=== PATIENT | female | born 1990 | race American Indian/Alaskan Native ===

== ENCOUNTER → 2016-05-14 | Day surgery (SDC) | payer OTHER ==
[~2016-05-14] VITALS: Ht 175.3 cm; Wt 95.3 kg
[~2016-05-14] MED LIST: DICLEGIS 10 MG-1 TCP PO; MIRENA1 EACH; MOTRIN 800MG T800 MG PO; PRENATAL1 TA2 PO; REGLAN10 MG PO; TYLENOL TAB 32325 MG PO; VITAFOL PO; ZOFRAN ODT4 MG PO
--- NOTE | 2016-05-24 17:25 | Operative Report ---
Operative/Inv Procedure Report Surgery Date: 05/14/16 Name of Procedure: Excision of vaginal lesion Pre-Operative Diagnosis: Vaginal lesion Post-Operative Diagnosis: Same Estimated Blood Loss: scant Surgeon/Traffic Operations Engineer: AUTUMN KIRKLAND MD Anesthesia: moderate sedation Operative/Procedure Note Note: The patient was brought to the operating room and placed on the OR table in the dorsal supine position. She was given adequate anesthesia and repositioned in modified dorsal lithotomy. She was prepped and draped in usual sterile fashion. Vaginal lesion was noted in the midline extending from the introitus. This was injected with 1% lidocaine with epinephrine. Was grasped with a Lluvia clamp and traction was placed on this lesion throughout the procedure. Using the electrocautery the needle tip Bovie was used for excision of this vaginal lesion.The defect was and coagulated and Silvadene dressing was applied. Sent to pathology. The patient was awakened and sent to recovery in good condition. All needle, sponge, and instrument counts were correct at the end of the procedure 2.
== END ==
LOC: STS 03:16
DX: N89.8 Other specified noninflammatory disorders of vagina (principal)
CPT/HCPCS: 81025; 88305; J2250

== ENCOUNTER 2016-07-26 17:40 | Emergency (ER) | payer OTHER ==
[~2016-07-26] VITALS: Ht 175.3 cm; Wt 93.9 kg
[~2016-07-26 17:40] MED LIST changes: -MIRENA1 EACH
--- NOTE | 2016-07-26 18:11 | ED HEAD/FACIAL INJ COMPLAINT ---
History of Present Illness General Chief Complaint: Facial or Head Injury Stated Complaint: HIT HEAD,-LOC,-LAC Source: patient Exam Limitations: no limitations Vital Signs & Intake/Output Vital Signs & Intake/Output Vital Signs Date Time Temp Pulse Resp B/P B/P Pulse O2 O2 Flow FiO2 Mean Ox Delivery Rate 07/26 1910 97.8 63 18 101/61 98 Room Air 07/26 1747 98.3 79 16 102/68 95 Room Air Allergies Coded Allergies: Influenza Virus Vaccines (SYNCOPE 07/26/16) Reconcile Medications Levonorgestrel (Mirena) 20 MCG/24 HOUR (5 YEARS) IUD CONTROL (Reported) Triage Note: TRIAGE: HIT HEAD ON [place] AT [place] [facility] 30 MINS AGO. ARRIVES WITH VERY SMALL LAC TO R TEMPORAL HAIRLINE, BLEEDING CONTOLLED. DENIES LOC. DENIES VISION CHANGES. SLIGHT NAUSEA DURING EPISODE, NOW RESOLVED. PERRLA, DEMONSTRATES GOOD FOCAL CONTROL. MED WITH TYLENOL IN TRIAGE. Triage Nurses Notes Reviewed? yes Onset: Abrupt Severity: mild Severity Numbers: 1 Location: frontal Method of Injury: direct blow : No Patient currently breastfeeds: No HPI: Patient is a 26-year-old female who presents emergency that today while at [facility] she was in a bent over position stood up and struck the corner of a piece of wood to the right frontal region of her scalp resulting bleeding that was controlled prior to arrival. No loss of consciousness had occurred. Patient did immediately have dizziness and nausea however no medications given prior to arrival. Patient denies any blurred vision neck pain (CECILIO OLVERA) Past History Travel History Traveled to [place] past 21 day No Medical History Any Pertinent Medical History? none Neurological: NONE EENT: NONE Cardiovascular: NONE Respiratory: NONE Gastrointestinal: NONE Hepatic: NONE Renal: NONE Musculoskeletal: NONE Psychiatric: NONE Endocrine: NONE Blood Disorders: NONE Cancer(s): NONE DAMPER MAKER/Reproductive: NONE Surgical History Surgical History: non-contributory Psychosocial History What is your primary language Azeri Tobacco Use: Quit >30 days ago ETOH Use: occasional use Illicit Drug Use: denies illicit drug use Family History Hx Contributory? No (CECILIO OLVERA) Review of Systems Review of Systems Constitutional: Reports: no symptoms. EENTM: Reports: no symptoms. Respiratory: Reports: no symptoms. Cardiovascular: Reports: no symptoms. GI: Reports: no symptoms. Genitourinary: Reports: no symptoms. Musculoskeletal: Reports: no symptoms. Skin: Reports: see HPI. Neurological/Psychological: Reports: see HPI, headache. Hematologic/Endocrine: Reports: see HPI, bleeding. Immunologic/Allergic: Reports: no symptoms. All Other Systems: Reviewed and Negative (CECILIO OLVERA) Physical Exam Physical Exam General Appearance: no apparent distress, alert Cranial Nerves: normal hearing, normal speech, PERRL Comments: Well-developed well-nourished person in no acute distress HEENT: Normal EENT exam, extraocular motion intact, no nystagmus. Pupils equally round and reactive to light and accommodation. Nose is atraumatic. External auditory canal and Tympanic membranes clear. Pharynx normal. No swelling or edema. Neck: Supple, no lymphadenopathy, normal range of motion without pain or tenderness Back: Nontender, no CVA tenderness. Cardiovascular: Regular rate and rhythms no murmurs rubs or gallops, normal JVP Respiratory: Chest nontender. No respiratory distress.breath sounds clear to auscultation bilaterally Abdomen: Soft, nontender nondistended, no appreciable organomegaly. Normal bowel sounds. No ascites Extremity: No edema, no calf tenderness to palpation, normal and equal pulses. Neuro: Alert oriented x3, motor sensory normal, cranial nerves II through XII grossly intact. Negative cerebellar testing negative Romberg Skin: No appreciable rash on exposed skin, skin is warm and dry. Psych: Mood and affect is normal, memory and judgment is normal. Diagram Head: 1) 2 mm well-healing puncture wound noted with no active bleeding mild surrounding swelling (CECILIO OLVERA) Progress Differential Diagnosis: corneal abrasion, c-spine injury, facial fracture, globe injury, ICH, orbit fracture, skull fracture Plan of Care: Patient denies any loss of consciousness, no basilar skull fracture signs no hemotympanum cranial nerves intact, no severe mechanism of injury patient acting at baseline at this time patient does not require CT scan for emergent concern of ICH however I did discuss with patient if symptoms worsen to return to emergency room and she will comply. The puncture site of the scalp was cleaned with sterile water and bacitracin was applied. (CECILIO OLVERA) Departure Departure Disposition: HOME OR SELF CARE Condition: Stable Clinical Impression Primary Impression: Scalp hematoma Secondary Impressions: Minor head trauma, Puncture wound of scalp Referrals: BALDOMERO PARRISH (PCP/Family) Additional Instructions: As discussed begin to apply bacitracin to the area once a day to prevent infection. If you note signs of infection redness, pain, swelling, discharge return to emergency room. Begin [id number] ibuprofen if needed for headaches and pain. If symptoms worsen return to the parents room. Departure Forms: Customer Survey General Discharge Information (CLARE DEWITT,CECILIO) PA/MIXER OPERATOR HELPER [employer]AL Co-Sign Statement Statement: ED Attending supervision documentation- [] I saw and evaluated the patient. I have also reviewed all the pertinent lab results and diagnostic results. I agree with the findings and the plan of care as documented in the PA's/MIXER OPERATOR [employer]'s documentation. [X] I have reviewed the ED Record and agree with the PA's/MIXER OPERATOR [employer]'s documentation. [] Additions or exceptions (if any) to the PAs/MIXER OPERATOR [employer]'s note and plan are summarized below: [] (BETZY VÁZQUEZ,CELIO Starks)
[2016-07-26] MEDS ORDERED: MIRENA1 EACH (18:42)
[2016-07-26 19:11] VITALS: BP 101/61
== END 2016-07-26 19:11 ==
LOC: ERH 17:40
DX: S01.03XA Puncture wound without foreign body of scalp, initial encounter (principal); S00.03XA Contusion of scalp, initial encounter; S09.90XA Unspecified injury of head, initial encounter; W22.8XXA Striking against or struck by other objects, initial encounter; Y92.512 Supermarket, store or market as the place of occurrence of the external cause; Y93.9 Activity, unspecified